=== PATIENT | female | born 1960 | race Caucasian/White ===

== ENCOUNTER → 2019-08-30 07:06 | Outpatient (CLI) | payer MEDICAID, SELFPAY ==
--- NOTE | 2019-08-30 08:15 | BRBX_PTH ---
PATIENT: JORDI PRATT LOC: [facility] U#:[id number] AGE/SX: 65/F ROOM: RE08/30/[address]: Dr. Elvia Franco MD : 1960 BED: DIS: SPEC #: [id number] RECD: 08/30/19 09:23 STATUS: TAMMIE MARIELLA #: [id number] CRISTA: 08/30/19 08:[address]: Elvia Franco DEPT: SURGICAL PATHOLOGY RECD BY: Mikal Brannon ENTERED: 08/30/19 10:03 SP TYPE: BREAST BX OTHR DR: Dr. Slim Donald MD Tissues: Left breast, NOS Procedures: Surgery Specimen Level IV HEADER OPERATION: Left breast stereotactic biopsy PRE-OP DIAGNOSIS: Left breast density 3 o'clock posterior depth TISSUE SUBMITTED: Left breast core tissue ISCHEMIC TIME: 1 minute FIXATION TIME: 11 hours MICROSCOPIC DIAGNOSIS Left breast density at 3 o'clock, stereotactic core biopsy: Fibroadenoma. Mild fibrocystic change. Focal intraductal hyperplasia without atypia. No evidence of malignancy. AM:yaneth 08/31/19 MICROSCOPIC DESCRIPTION Slides are reviewed. GROSS DESCRIPTION Received is one container labeled with the patient's name and not further designated. The specimen consists of multiple elongated fragments of lomax-yellow fibroadipose tissue that in aggregate measure 5 x 3 x 0.8 cm. The entire specimen is submitted in five cassettes. / SJ:yaneth 08/30/19 TC:5 CPT: 26998
--- NOTE | 2019-08-30 09:01 | NURSING ---
0840 pressure held to breast after sterotactic breast bx for 5 minutes. no bleeding at site at that time, wound cleansed, skin protectant applied, x4 steri strips applied, and opsite dressing applied, reviewed dc instructions with patient and when to seek medical care. pt voiced understanding
--- NOTE | 2019-08-30 09:29 | PCM.OPRPT ---
Report of Operation Date of Procedure: 08/30/19 Pre-Operative Diagnosis: abnormal density seen on left breast mammograms Post-Operative Diagnosis: same Surgery/Procedure Performed:: left breast stereotactic breast biopsy Description of Surgical Findings:: abnormal mammographic density - It was at the 8:00 position. Type of Anesthesia:: Local - 1% xylocaine Specimen's removed: left breast tissue Estimated Blood Loss (mL): minimal Fluids Replaced: none Description of Procedure: After informed consent was given, the patient was brought into the breast biopsy suite. Appropriate time out protocol was followed. and then placed in the prone position on the stereotactic biopsy table. The patient?s left breast was then placed in the opening at the head of the table. A help desk coordinator compression mammogram was then obtained in the lateral view. The suspicious radiological lesion was then identified. It was at the 8:00 position. Stereo pictures of the lesion were then taken for XYZ coordinates. The Mammotome biopsy stylus was then positioned where it would be entering into the patient?s breast. The skin at this site was then cleansed with a surgical skin preparation. The skin and subcutaneous tissues at this site were then infiltrated with 1% xylocaine. A small skin incision was made with an 11 blade scalpel. The biopsy stylus was then positioned into the patient?s breast at the proper coordinates of depth. Using the Mammotome vacuum-assist device, several core samples of breast tissue were obtained. A hemostatic marker clip was then placed into the biopsy cavity and a help desk coordinator film revealed that it was properly deployed. The patient was then placed in the supine position and pressure was applied to the breast until no active bleeding was noted. Steristrips were applied to reapproximate the skin. A unilateral mammogram in the CC and MLO view were then taken which revealed that the marker clip was in the same area as the previous suspicious lesion. The patient tolerated the procedure well and was discharged from the breast biopsy suite in good condition.. - Complications none noted
== END ==
PROVIDERS: Family Provider Family Medicine; PCP Family Medicine; Referring Provider Surgery; Visit Provider Surgery
DX: D24.2 Benign neoplasm of left breast (principal); R92.8 Other abnormal and inconclusive findings on diagnostic imaging of breast; N62 Hypertrophy of breast
CPT/HCPCS: 19081; 88305; J7050; A4648

== ENCOUNTER → 2020-08-05 | Outpatient (CLI) | payer MEDICAID, SELFPAY ==
--- NOTE | 2020-08-05 10:30 | RAD_ITS ---
STUDY: AIR-CONTRAST UPPER GI STUDY REASON FOR EXAM: Female, 60 years old. Vomiting FLUOROSCOPY TIME (if supplied): (0:57) minutes/seconds TECHNIQUE: Multiple barium swallows were performed under fluoroscopic monitoring. Multiple views of the esophagus, the stomach and the duodenum were performed. COMPARISON: None. FINDINGS: The esophagus appears normal in size and shape it shows unremarkable mucosal pattern. There is a small sliding-type hiatal hernia was mild narrowing of the esophagus above the hernia suggesting a stricture from reflux esophagitis. The stomach is normal in size shape and position the gastric mucosal folds are unremarkable. The duodenum and bulb and duodenal loop show no significant stenosis. There is a bilobed duodenal diverticulum at the second part of the duodenum measures 3 cm in greatest diameter. The duodenal jejunal junction is in normal anatomic position to the left of the vertebral body of T12. RAD/Upper GI Dual Contrast IMPRESSION: There is a small sliding-type hiatal hernia was mild narrowing of the esophagus above the hernia suggesting a stricture from reflux esophagitis. There is a bilobed duodenal diverticulum at the second part of the duodenum measures 3 cm in greatest diameter. Electronically Signed: Ying Quiñones, at 13:59 EDT Tel , Service support ,
== END | disposition home or self-care (01) ==
LOC: RAD 09:54
PROVIDERS: PCP Family Medicine; Referring Provider Nurse Practitioner Adult Health; Visit Provider Nurse Practitioner Adult Health
DX: K21.9 Gastro-esophageal reflux disease without esophagitis (principal); R13.10 Dysphagia, unspecified
CPT/HCPCS: 74246

== ENCOUNTER → 2020-10-16 07:35 | Outpatient (CLI) | payer MEDICAID, SELFPAY ==
--- NOTE | 2020-10-16 | IMM_PTH ---
PATIENT: JORDI PRATT LOC: [facility] U#:[id number] AGE/SX: 65/F ROOM: RE10/16/[address]: Dr. Elvia Franco MD : 1960 BED: DIS: SPEC #: [id number] RECD: 10/17/20 14:03 STATUS: TAMMIE REQ #: [id number] CRISTA: 10/16/20 00:[address]: Elvia Franco DEPT: IMMUNOHISTOCHEMISTRY RECD BY: Rosalind Gallego ENTERED: 10/17/20 14:03 SP TYPE: IMMUNO OTHR DR: Dr. Slim Donald MD Tissues: Right breast, NOS Procedures: Calponin-1(initial) CALPONIN-1 (add) P40 (add) PHYSICIAN & INSTITUTION [place] [id number] SPECIMEN INFORMATION: Tissue Source: Right breast core tissue Clinical Info: Right breast 1 o'clock middle depth microcalcifications Specimen Number: [id number] #1 & 2 CPT code: 74524, 06375 x3 METHODOLOGY: Deparaffinized sections of prefer/formalin-fixed tissue or PAP/DQ stained slides are incubated with monoclonal/polyclonal antibodies/oligonucleotide probes. Localization is made via biotin free immunoperoxidase method. Appropriate controls are performed and reacted as expected. Results on target cell population are indicated in the following table: RESULTS: ANTIBODY / CLONE RESULT Block 1 P40 (BC28) positive Calponin-1 (MZ281F) positive Block 2 P40 (BC28) positive Calponin-1 (VU023E) positive These tests were developed and their performance characteristics determined by [facility]. They may not have been cleared or approved by the U.S. Food and Drug Administration. The FDA has determined that such clearance or approval is not necessary. The above immunohistochemical/dualISH markers are ordered and reviewed by the Pathologist. INTERPRETATION: Right breast, 1 o'clock middle depth microcalcifications, stereotactic needle core biopsy: Negative for malignancy. SJ:yaneth 10/18/20
--- NOTE | 2020-10-16 08:00 | BRBX_PTH ---
PATIENT: JORDI PRATT LOC: [facility] U#:[id number] AGE/SX: 65/F ROOM: RE10/16/[address]: Dr. Elvia Franco MD : 1960 BED: DIS: SPEC #: [id number] RECD: 10/16/20 08:39 STATUS: TAMMIE REBubba #: [id number] CRISTA: 10/16/20 08:[address]: Elvia Franco DEPT: SURGICAL PATHOLOGY RECD BY: Meera Kay ENTERED: 10/16/20 09:46 SP TYPE: BREAST BX MIKI DR: Dr. Slim Donald MD Tissues: Breast, NOS Procedures: Surgery Specimen Level IV HEADER OPERATION: Right stereotactic breast biopsy PRE-OP DIAGNOSIS: Right breast 1 o'clock middle depth microcalcifications TISSUE SUBMITTED: Right breast core tissue ISCHEMIC TIME: 1 minute FIXATION TIME: 11.5 hours MICROSCOPIC DIAGNOSIS Right breast, 1 o'clock middle depth microcalcifications, stereotactic core biopsy: Hyalinized fibroadenoma with focal calcifications. Negative for atypia or malignancy.. See comment. NORIS:yaneth 10/17/20 COMMENT Immunohistochemisty ([id number]) supports the above diagnosis. Correlation with clinical, radiologic findings and appropriate follow up are necessary. Please make reference to previous specimen ([id number]) left breast density at 3 o'clock, stereotactic core biopsy with diagnosis of fibroadenoma, mild fibrocystic change and focal intraductal hyperplasia without atypia. MICROSCOPIC DESCRIPTION Slides are reviewed. GROSS DESCRIPTION Received in fixative is one container labeled with the patient name and designated right breast. The specimen consists of multiple elongated fragments of lomax-yellow fibroadipose tissue that in aggregate measure 5 x 2.5 x 0.3 cm. The entire specimen is submitted in two cassettes. / NORIS:yaneth 10/16/20 TC:1 CPT: 00018
--- NOTE | 2020-10-16 08:57 | PCM.OPRPT ---
Report of Operation Date of Procedure: 10/16/20 Pre-Operative Diagnosis: abnormal calcifications on right mammograms Post-Operative Diagnosis: same Surgery/Procedure Performed:: right stereotactic breast biopsy Description of Surgical Findings:: abnormal calcifications seen on upper right mid breast Type of Anesthesia:: Local - 1% xylocaine Specimen's removed: right breast tissue Estimated Blood Loss (mL): minimal Fluids Replaced: none Description of Procedure: After informed consent was given, the patient was brought into the Breast Biopsy suite. Appropriate time out protocol was followed. The patient was placed in the prone position on the stereotactic biopsy table. The patient?s right breast was then placed in the opening at the head of the biopsy table. A visual merchandising coordinator compression mammogram was then obtained in the CC view. The suspicious radiological lesion was thus identified. Stereo pictures of the lesion were then taken for XYZ coordinates. The Mammotome biopsy stylus was then positioned where it would be entering into the patient?s breast. The skin at this site was then cleansed with a surgical skin preparation. The skin and subcutaneous tissues at this site were then infiltrated with 1% xylocaine. A small skin incision was made with an 11 blade scalpel. The biopsy stylus was then positioned into the patient?s breast at the proper coordinates of depth. Using the Mammotome vacuum-assist device, several core samples of breast tissue were obtained. A specimen mammogram was the obtained. It revealed that the abnormal calcifications were within the specimen. I reviewed this personally and concluded that the tissue sampling was adequate. A hemostatic marker clip was then placed into the biopsy cavity and a visual merchandising coordinator film revealed that it was properly deployed. The patient was then placed in the supine position and pressure was applied to the breast until no active bleeding was noted. A nylon suture was placed in a simple fashion to reapproximate the skin. A unilateral mammogram in the CC and MLO view were then taken which revealed that the marker clip was in the same area as the previous suspicious lesion. The patient tolerated the procedure well and was discharged from the Breast Biopsy suite in good condition. - Complications none noted
== END ==
PROVIDERS: PCP Family Medicine; Referring Provider Surgery; Visit Provider Surgery
DX: D24.1 Benign neoplasm of right breast (principal); I50.22 Chronic systolic (congestive) heart failure; E11.9 Type 2 diabetes mellitus without complications; I25.10 Atherosclerotic heart disease of native coronary artery without angina pectoris; I11.0 Hypertensive heart disease with heart failure; K21.9 Gastro-esophageal reflux disease without esophagitis; E78.5 Hyperlipidemia, unspecified; Z86.73 Personal history of transient ischemic attack (TIA), and cerebral infarction without residual deficits; Z79.02 Long term (current) use of antithrombotics/antiplatelets; Z79.01 Long term (current) use of anticoagulants; Z79.899 Other long term (current) drug therapy; Z87.891 Personal history of nicotine dependence
CPT/HCPCS: 19081; 88305; 88341; 88342; J7050

== ENCOUNTER 2024-07-20 15:28 | Emergency (ER) | payer MEDICAID, SELFPAY ==
[2024-07-20] VITALS (7 sets, daily range): BP systolic 75–128; BP diastolic 40–81; PULSE 55–66; RESP 16–20; TEMP 18.8; O2SAT 91–98; BMI 39.0
[2024-07-20] MEDS: 0.9% Normal Saline (1000mL) 1,000 ML 50 ML IV (15:50)
--- NOTE | 2024-07-20 16:06 | EDS_ITS ---
HPI History of Present Illness Chief Complaint: Diarrhea PFSH PFS Medical History (Updated 07/20/24 @ 16:09 by Mike Diaz) Interstitial lung disease Hypertension Heart failure Stage 2 chronic kidney disease Allergy/AdvReac Type Severity Reaction Status Date / Time metformin Allergy Vomiting Verified 07/20/24 15:33 minocycline Allergy Hives Verified 07/20/24 15:33 pioglitazone Allergy Vomiting Verified 07/20/24 15:33 Sulfa (Sulfonamide Allergy Hives Verified 07/20/24 15:33 Antibiotics) Family History (Updated 07/20/24 @ 16:07 by Mike Diaz) Other Heart disease Lung disease Surgical History (Updated 07/20/24 @ 16:06 by Mike Diaz) History of open heart surgery Social History Smoking Status: Current every day smoker tobacco type: cigarettes EXAM Physical Exam Const Vital Signs: 07/20/24 15:34 07/20/24 16:04 07/20/24 16:04 Temperature 66 F L Temperature Source Oral Pulse Rate 66 Respiratory Rate 18 Respiratory Effort Respiratory Pattern Blood Pressure 75/40 L Blood Pressure Mean 51 Pulse Ox 96 98 98 Oxygen Delivery Method Room Air Room Air Room Air 07/20/24 16:04 07/20/24 16:30 07/20/24 17:00 Temperature Temperature Source Pulse Rate 55 L 57 L Respiratory Rate 20 H 18 Respiratory Effort Short of Breath Respiratory Pattern Normal Blood Pressure 88/42 L 112/62 Blood Pressure Mean 57 78 Pulse Ox 91 93 Oxygen Delivery Method 07/20/24 18:00 07/20/24 19:00 Temperature Temperature Source Pulse Rate 61 60 Respiratory Rate 19 H 16 Respiratory Effort Respiratory Pattern Blood Pressure 128/73 H 108/81 H Blood Pressure Mean 91 90 Pulse Ox 94 96 Oxygen Delivery Method Room Air Room Air [facility] [place] Narrative Medical decision making narrative: HISTORY OF PRESENT ILLNESS: 64-year-old female presents with diarrhea. Notes 10 days of diarrhea. Notes history of C. difficile. Sent from urgent care secondary low blood pressure. The patient further states she has had multiple episodes of diarrhea for last 10 days. Recent travel, antibiotic surgery or hospitalization. Notes history of C. difficile. Denies any fever or significant vomiting. REVIEW OF SYSTEMS: Pertinent positives: Diarrhea, abdominal pain Pertinent negatives: Vomiting PHYSICAL EXAM: Nursing triage notes reviewed, Vital signs reviewed Constitutional: please see mdm HENT: MMM Eyes: Pupils equal round and reactive to light, Extraocular muscles intact Neck: No stridor, no JVD, full neck ROM Lungs: Clear to auscultation, No wheezing or rales. No increased work of breathing, no conversational dyspnea, no accessory muscle use, no nasal flaring. No respiratory distress noted Heart: Regular rate and rhythm, No murmurs, No rubs and No gallops, 2+ distal pulses (radial, femoral, posterior tibial) in all extremities Abdomen: Soft, t diffuse tenderness but no, rigidity, rebound or guarding, no obvious peritoneal signs, no palpable pulsatile abdominal masses, no auscultated abdominal bruit : No CVAT Extremities: No edema Neuro: No focal neurological deficits, cranial nerves II through XII intact, 5/5 strength in all extremities. Intact sensation to light touch in all extremities, 2+ reflexes bilateral patella tendons. Normal gait. No ataxia. Skin: No rash or lesions noted MEDICAL DECISION MAKING: Chief Complaint: Diarrhea External records reviewed: Factors affecting care: none Social determinants of health: none History obtained from others: none Consults: none MDM Narrative: Patient was initially hypotensive with blood pressure 75/40 otherwise she was not tachycardic. Abdominal exam had TTP but was not peritonitic. I considered the following differential diagnosis: Dehydration, septic shock, toxic megacolon I obtained a broad lab and imaging workup to further elucidate etiology of patient complaints. Given poor department of conditions and high volume patient was initially placed on protocol orders. 1 L IV fluid, lactate and culture was ordered. After evaluate the patient I added: CT scan of the abdomen and pelvis, labs including urinalysis, lipase, LFTs, troponin, EKG and enteric stool culture Labs without evidence of C. difficile, CT scan abdomen pelvis showed no evidence of toxic megacolon, no evidence of pancreatitis, no evidence of endorgan or perfusion, no evidence of myocardial ischemia, noted hypokalemia and hyponatremia consistent with diarrhea. Noted mild renal insufficiency, no evidence of hepatobiliary obstruction. Urinalysis shows no evidence of urinary inflammation suggestive of UTI On reassessment patient's blood pressure improved to 108/81. epeat abdominal exam benign. Patient is appropriate for discharge home. The synthesis the patient's exam is likely dehydration secondary to diarrhea. No evidence of invasive diarrhea with a negative lactate and no white count. Encourage patient to take p.o. fluids including Body Armor Pedialyte. Replace h er potassium with oral potassium. No evidence of C. difficile. We tried to talk;. Patient is appropriate discharge home. Enteric stool panel is pending. Called through our culture callback process if positive. The patient and/or family, caregivers express understanding. The patient and/or family, caregivers agrees with the plan. Shared decision making: I will have a discussion with the patient and or visitors regarding risk/benefits of further testing or admission. They will be made aware of of the risk/benefits inherent in this decision they will be given the opportunity to voice understanding. Total critical care time today provided was at least 0 minutes. This excludes separately billable procedures. Critical care time (if documented) is secondary to the patient having high probability of clinically significant/life threatening deterioration in the patient's condition which required my urgent intervention. Impression: 1. Diarrhea 2. Hypokalemia 3. Hyponatremia 4. Dehydration Dispo: Discharge home This note was generated with [employer] dictation software. It may contain incorrect words, spelling, and punctuation that were not noted in review of the chart prior to signing. Lab Data Labs: Laboratory Results - last 24 hr 07/20/24 07/20/24 07/20/24 15:52 16:19 17:37 WBC 8.2 RBC 4.51 Hgb 13.1 Hct 39.3 MCV 87.1 MCH 29.0 MCHC 33.3 RDW Std Deviation 48.5 H RDW Coeff of [place] 15.2 H Plt Count 184 MPV 10.2 Sodium 134 L Potassium 3.0 L Chloride 99 Carbon Dioxide 31.0 Anion Gap 4 L BUN 14 Creatinine 1.48 H Estim Creat Clear Calc 43.89 Est GFR (MDRD) Af Amer 46 L Est GFR (MDRD) Non-Af 38 L BUN/Creatinine Ratio 9.5 L Glucose 116 H Lactic Acid 1.8 Calcium 8.7 Total Bilirubin 0.70 AST 21 ALT 19 Alkaline Phosphatase 92 Troponin I High Sens 41 Total Protein 6.5 Albumin 3.3 Globulin 3.2 Albumin/Globulin Ratio 1.0 Lipase 18 Urine Color Yellow Urine Clarity Clear Urine pH 6.0 Ur Specific [place] 1.010 Urine Protein Negative Urine Glucose (UA) 1000 H Urine Ketones Negative Urine Occult Blood Negative Urine Nitrite Negative Urine Bilirubin Negative Urine Urobilinogen Normal Ur Leukocyte Esterase Negative Urine RBC 0-5 SEEN Urine WBC 0-5 SEEN Ur Squamous Epith Cells 0-5 SEEN Ur Transition Epith Cell 0-5 SEEN Urine Bacteria RARE Urine Mucus 0 SEEN Radiography Diagnostic Testing: Clinical Impression(s) from Imaging Studies Abdomen/Pelvis CT 07/20/24 16:24 IMPRESSION: No acute abnormality. 2.6 cm right adrenal mass with recommendations as above. Fat-containing umbilical hernia. Several other chronic findings as above. Severe atrophy of the left kidney. Prominent calcified vascular disease. Electronically Signed: Milton Gill MD at 17:48 EDT , Discharge Plan Triage Chief Complaint: Diarrhea Other Complaint: Hypotension ED Provider: Rey Lombardi Dx/Rx/DC Orders Instructions: Dehydration, ED Diarrhea, Unknown Cause Primary Care Provider: Slim Donald Referrals: Slim Donald MD [Primary Care Provider] - Activity Restrictions/Additional Instructions: Thank you for trusting us with your care today! Please take Tylenol (2 pills, 650 mg), ibuprofen (2 pills, 400 mg) every 6 hours as needed for pain and fever control. Please take in plenty of fluids. Recommend Body Armor, Pedialyte or Gatorade. Please take an at least 8 ounces of rehydration for every loose stool or diarrheal stool you have. Please return to the emergency department if your symptoms change or worsen. Specifically develop fever, severe abdominal pain, vomiting or if you lose consciousness. Please follow with your primary care physician for further outpatient evaluation and management. Your stool studies are still pending. If they are positive we will call you and write you an antibiotic. Please look for to call from us. Print Language: [place]an Disposition Disposition: Home, Self Care
--- NOTE | 2024-07-20 16:24 | EKG12_ITS ---
Test Reason : DIAHERRA Blood Pressure : / mmHG Vent. Rate : 057 BPM Atrial Rate : 057 BPM P-R Int : 184 ms QRS Dur : 110 ms QT Int : 474 ms P-R-T Axes : 083 021 145 degrees QTc Int : 461 ms Sinus bradycardia Left ventricular hypertrophy with repolarization abnormality ( [place] product ) Possible Inferior infarct , age undetermined Abnormal ECG No previous ECGs available Confirmed by Justin Reyes ([id number]), slot editor ARELY COATES ([id number]) on 07/24/2024 2:30:31 PM Referred By: Confirmed By:Justin Reyes
--- NOTE | 2024-07-20 16:24 | CT_ITS ---
STUDY: CT ABDOMEN AND PELVIS WITH CONTRAST REASON FOR EXAM: Female, 64 years old. Abdominal pain RADIATION DOSAGE (If Supplied By Facility): CTDIvol = ( 15.01 ) mGy, DLP = ( 1244.81 ) mGycm TECHNIQUE: Transaxial images were obtained from the dome of the diaphragm to the symphysis pubis without oral contrast. IV 75mL Isovue-300 was administered. Sagittal and coronal images were reconstructed. Individualized dose optimization techniques were used for this CT. COMPARISON: None. FINDINGS: The visualized lung bases are unremarkable. The visualized portions of the heart are within normal limits. Normal liver. There are surgical clips in the gallbladder fossa consistent with a prior cholecystectomy. There is a 9 cm peripherally calcified low-attenuation mass of the spleen probably related to previous cyst or hematoma/seroma. There are pancreatic calcifications in the distribution of the ducts consistent with chronic pancreatitis. 2.6 cm mass of the right adrenal gland. Suggest follow-up with contrast MRI and adrenal labs or CT scan in one year. Normal left adrenal gland. Normal right kidney. Severe atrophy of the left kidney. Evaluation of the GI tract is limited by absence of oral contrast. Cannot exclude stomach wall thickening. No dilated loops of bowel or evidence for obstruction. Cannot exclude segmental thickening of the arias of the small or large bowel. Cannot exclude enteritis or colitis. Moderate diffuse fecal retention. Appendix within normal limits. There is diffuse atherosclerotic calcification of the abdominal aorta, without a demonstrated aneurysm. Prominent calcified plaque at the origins of the celiac, SMA, and renal arteries. Normal inferior vena cava. Normal retroperitoneum. Normal urinary bladder. There is absence of the uterus consistent with a prior hysterectomy. There is a small fat-containing umbilical hernia. There are surgical changes of previous pelvic anterior wall hernia.. Normal osseous structures. CT/Abdomen/Pelvis W IV Cont ONLY IMPRESSION: No acute abnormality. 2.6 cm right adrenal mass with recommendations as above. Fat-containing umbilical hernia. Several other chronic findings as above. Severe atrophy of the left kidney. Prominent calcified vascular disease. Electronically Signed: Milton Gill MD at 17:48 EDT ,
[2024-07-20 16:25] LABS: Lactic Acid 1.8 mmol/L (0.4-1.9)
--- NOTE | 2024-07-20 16:27 | NURSING ---
NO OLD EKGS
[2024-07-20 16:36] LABS: Hematocrit 39.3 % (37-47); Hemoglobin 13.1 g/dL (12.0-15.0); Mean Corp Hgb Conc 33.3 g/dL (32-36); Mean Corpuscular Volume 87.1 fL (81-99); Mean Platelet Vol. 10.2 fl (6.2-12.0); Platelet Count 184 K/mm3 (150-450); RBC Distribution Width CV 15.2 % (11.6-14.6); RBC Distribution Width SD 48.5 fl (35.1-43.9); Red Blood Count 4.51 M/mm3 (4.2-5.4); White Blood Count 8.2 K/mm3 (4.4-11.0)
[2024-07-20 16:55] LABS: AST(SGOT) 21 U/L (15-37); Alanine Aminotransfer ALT/SGPT 19 U/L (13-56); Albumin, Serum 3.3 g/dL (3.2-5.0); Alkaline Phosphatase 92 U/L (45-117); Anion Gap 4 (5-15); BUN 14 mg/dL (7-18); BUN/Creat Ratio 9.5 RATIO (10-20); Calcium,Total 8.7 mg/dL (8.5-10.1); Chloride 99 mmol/L (98-107); Creatinine, Serum 1.48 mg/dL (0.55-1.02); EST Glomerular Filtration Rate 38 mL/min (>60); Est Glom Filt Rate - Afr Amer 46 mL/min (>60); Estimated Creatinine Clearance 43.89 ml/min; Globulin 3.2 g/dL (2.2-4.2); Glucose 116 mg/dL (74-106); Lipase 18 U/L (13-75); Protein, Total 6.5 g/dL (6.4-8.2); Sodium Level 134 mmol/L (136-145); Troponin-I HS 41 pg/mL (3.0-54.0)
[2024-07-20 17:43] LABS: Mucous, Urine 0 SEEN /hpf (<or=2+)
[2024-07-20 17:47] LABS: Color, Urine Yellow (Yellow); Glucose, Dipstick 1000 mg/dl (Normal); Ketone-Dipstick Negative (Negative); Leukocyte Esterase-Dipstick Negative /ul (Negative); Nitrite-Dipstick Negative (Negative); Occult Blood-Urine Negative /ul (Negative); Protein-Dipstick Negative (Negative); Urine Bilirubin Dipstick Negative (Negative); Urine Clarity Clear (Clear); Urine Urobilinogen Normal (Normal)
[2024-07-20 18:26] LABS: Bacteria RARE /hpf (None Seen); Red Blood Cells-Urine 0-5 SEEN /hpf (0-5); Squamous Epithelial Cells - UA 0-5 SEEN /hpf (5-10); Transitional Epithelial - Ur 0-5 SEEN /hpf (0-5); White Blood Cells 0-5 SEEN /hpf (0-5)
[2024-07-20] MEDS: Potassium Chloride Oral Tablet 20 MEQ 60 MEQ PO (19:20)
== END 2024-07-20 20:15 | disposition home or self-care (01) ==
PROVIDERS: Emergency Provider Emergency Medicine; PCP Family Medicine; Visit Provider Emergency Medicine
DX: R19.7 Diarrhea, unspecified (principal); I50.9 Heart failure, unspecified; I13.0 Hypertensive heart and chronic kidney disease with heart failure and stage 1 through stage 4 chronic kidney disease, or unspecified chronic kidney disease; E86.0 Dehydration; F17.210 Nicotine dependence, cigarettes, uncomplicated; N18.2 Chronic kidney disease, stage 2 (mild); E87.1 Hypo-osmolality and hyponatremia; E87.6 Hypokalemia; I95.9 Hypotension, unspecified
CPT/HCPCS: 74177; 80053; 81001; 83605; 83690; 84484; 85027; 87040; 87493; 87506; 93005; 94760; 96360; 96361; 99284; J7030; Q9967; A4216